=== PATIENT | male | born 1970 | race Asian ===

== ENCOUNTER 2023-01-09 09:50 | Outpatient (REF) | payer BC, SELFPAY ==
[2023-01-10 13:41] LABS: Chlamydia Result Negative (Negative); GC Result Negative (Negative)
== END 2023-01-09 09:51 | disposition home or self-care (01) ==
LOC: LBN 09:50
PROVIDERS: Visit Provider Physician Assistant
DX: Z11.3 Encounter for screening for infections with a predominantly sexual mode of transmission (principal)
CPT/HCPCS: 87491; 87591

== ENCOUNTER 2023-05-15 19:04 | Outpatient (REF) | payer BC, SELFPAY ==
--- OUTSIDE RECORDS SUMMARY | 2023-05-15 19:06 | XMS_ITS | Continuity of Care Document ---
Author Name Unknown Organization [facility] Address [address] [place] [id number] Phone Care Team Providers Care Department [employer] Name Role Phone Valkeaganeni DMD, Gopichand Unavailable Unav ailable Medications Medication Instructions Dosage Effective Dates (start - stop) Status Comments amoxicillin 500 mg capsule 1 tab tid x7 days - No Longer Active Procedures Procedure Date Patient Intake Completed PCP-No Limited Oral Evaluation-Problem Focused Urgent Care Surgical Extraction Of An Erupted Tooth Urgent Care Prescription Documentation EDR Documentation Approval Advance Directives Directive Yes / No Effective Date File Name No Information Encounters Encounter Description Practice Location Reason(s) For Visit Diagnoses Date Provider Providers Copied on Encounter [facility], [address] [place] [address], [id number], tel:[phone] [facility] No Information 2 Vallabhaneni Gopichand. [address] [place] [address], [id number], . tel:[phone] Family History Family Member Type Diagnosis Age At Onset No Information Payers Payer name Insurance type Covered constitution party ID Authoriza tion(s) D Other Insurance CI [id number] Danni [id number] Social History Type Description Quantity Date Captured Comments Sex Male Smoking Status No Information Sexual Orientation Lesbian, kearney or homosexual Gender Identity Male Chief Complaint And Reason For Visit No Information Reason For Referral Reason For Referral No Information History Of Present Illness Encounter Date Complaint History Of Prese nt Illness No Information Functional Status Date Functional Assessmen t No Information Instructions Date Instruction Additional Infor mation No Information Assessments Type Assessment Date No Information Patient Care Teams Name Effective Dates (start - stop) Status Members No Information
[2023-05-16 19:00] LABS: Hepatitis C Ab w Rflx HCV PCR Reactive (Negative)
[2023-05-16 19:01] LABS: HIV-1/2 Ag & Ab Screen Negative (Negative)
[2023-05-16 19:40] LABS: Hepatitis B Surface Ag Negative (Negative)
[2023-05-17 11:09] LABS: Syphilis Serology (RPR) Negative (Negative)
[2023-05-17 13:39] LABS: HCV RNA Qualitative Undetected (Undetected)
[2023-05-17 14:09] LABS: Chlamydia Result Negative (Negative); GC Result Negative (Negative)
== END 2023-05-15 19:05 | disposition home or self-care (01) ==
LOC: NCHCN 19:04
PROVIDERS: Visit Provider Physician Assistant Medical
DX: Z11.3 Encounter for screening for infections with a predominantly sexual mode of transmission (principal); Z11.4 Encounter for screening for human immunodeficiency virus [HIV]; Z11.59 Encounter for screening for other viral diseases
CPT/HCPCS: 86803; 87340; 87389; 87491; 87522; 87591; 86592